=== PATIENT | male | born 1955 | race Caucasian/White ===

== ENCOUNTER 2021-09-20 18:20 | Emergency (ER) | payer OTHER, BC ==
[~2021-09-20] VITALS: Ht 180.3 cm; Wt 72.6 kg
[2021-09-20] MEDS ORDERED: PERCOCET 10-321 EACH (18:59)
[2021-09-20] MEDS ORDERED: MOVANTIK 25 MG (19:00)
[2021-09-20] MEDS ORDERED: DILAUDID4 MG (19:01)
[2021-09-20] MEDS ORDERED: LIPITOR (19:02)
[2021-09-20] MEDS ORDERED: ZOFRAN8 MG PO (21:27)
== END 2021-09-20 22:26 | disposition home or self-care (01) ==
LOC: ER 18:20
DX: R10.84 Generalized abdominal pain (principal); R11.10 Vomiting, unspecified